=== PATIENT | male | born 1945 | race Caucasian/White ===

== ENCOUNTER 2024-05-03 10:40 | Emergency (ER) | payer OTHER ==
[~2024-05-03] VITALS: Ht 177.8 cm; Wt 81.6 kg
[~2024-05-03 10:40] MED LIST: ASPI-1393 PO; BENA1TAB2 PO; FENO135C PO; GLUXR500 PO; LOVA20TA2 PO; PLE5 PO
[2024-05-03 10:44] VITALS: BP_SYST 156; BP_SYST 173; PULSE 64; RESP 17; TEMP 97.2; O2SAT 98
[2024-05-03 11:27] LABS: BASOPHILS % (AUTO) 0.3 % (0.0-2.0); EOSINOPHILS # (AUTO) 0.1 K/uL (0.0-0.4); EOSINOPHILS % (AUTO) 0.6 % (0.0-4.0); HEMATOCRIT 39.8 % (36-54); HEMOGLOBIN 13.5 g/dL (14.0-18.0); LYMPHOCYTES # (AUTO) 1.5 K/uL (1.0-5.5); MEAN CORPUSCULAR HEMOGLOBIN 32 pg (27-31); MEAN CORPUSCULAR HGB CONC 34 % (32-36); MEAN CORPUSCULAR VOLUME 95 fL (79.0-98.0); MONOCYTES # (AUTO) 0.5 K/uL (0.0-1.0); MONOCYTES % (AUTO) 3.9 % (1.7-9.3); NEUTROPHILS # (AUTO) 10.3 K/uL (1.8-7.7); NEUTROPHILS % (AUTO) 83.2 % (40.0-70.0); PLATELET COUNT (AUTO) 219 K/uL (130-430); RED CELL DISTRIBUTION WIDTH 14.3 % (9.0-15.0); WHITE BLOOD COUNT (AUTO) 12.4 K/uL (4.8-10.8)
[2024-05-03 12:10] LABS: ALANINE AMINOTRANSFERASE 20 U/L (12-78); ALBUMIN 3.5 g/dL (3.4-4.8); ANION GAP 8 (5-15); ASPARTATE AMINOTRANSFERASE 19 U/L (10-37); BILIRUBIN,DIRECT 0.2 mg/dL (0.0-0.3); CALCIUM 9.2 mg/dL (8.4-11.0); CARBON DIOXIDE 28 mmol/L (23-29); CHLORIDE 108 mmol/L (98-107); CREATININE 1.58 mg/dL (0.55-1.30); GLUCOSE 134 mg/dL (74-106); POTASSIUM 4.8 mmol/L (3.5-5.1); SODIUM SERUM 144 mmol/L (136-145); TOTAL BILIRUBIN 0.6 mg/dL (0.0-1.0); TOTAL PROTEIN, SERUM 7.3 g/dL (6.4-8.3); UREA NITROGEN, BLOOD 39 mg/dL (8-21)
[2024-05-03 12:14] LABS: INR 1.1 (0.80-1.20)
[2024-05-03] MEDS ORDERED: CEPH-548 PO (12:36)
[2024-05-03 12:47] VITALS: BP_SYST 132; PULSE 71; RESP 16; TEMP 97.2; O2SAT 100
== END 2024-05-03 12:45 | disposition home or self-care (01) ==
LOC: SED 10:40
DX: R04.0 Epistaxis (principal); E11.9 Type 2 diabetes mellitus without complications; I10 Essential (primary) hypertension; Z79.899 Other long term (current) drug therapy; Z79.2 Long term (current) use of antibiotics
CPT/HCPCS: 36415; 80048; 80076; 85025; 85610; 85730; 99284

== ENCOUNTER 2024-05-04 08:01 | Emergency (ER) | payer OTHER ==
[~2024-05-04] VITALS: Ht 167.6 cm; Wt 77.1 kg
[~2024-05-04 08:01] MED LIST changes: +CEPH-548 PO
[2024-05-04 08:08] VITALS: BP_SYST 158; PULSE 71; RESP 20; TEMP 98.5; O2SAT 98
[2024-05-04] MEDS: cloNIDine HCL 0.1 MG TABLET PO ONE (08:33)
[2024-05-04 09:54] VITALS: BP_SYST 121; PULSE 71; RESP 20; TEMP 98.5; O2SAT 98
== END 2024-05-04 09:52 | disposition home or self-care (01) ==
LOC: SED 08:01
DX: R04.0 Epistaxis (principal); E11.9 Type 2 diabetes mellitus without complications; I10 Essential (primary) hypertension; Z79.899 Other long term (current) drug therapy; Z79.2 Long term (current) use of antibiotics; Z79.82 Long term (current) use of aspirin
CPT/HCPCS: 99284